=== PATIENT | female | born 1950 | race Caucasian/White ===

== ENCOUNTER 2018-05-17 08:36 | Outpatient (CLI) ==
--- NOTE | 2018-05-17 11:24 | MRI ---
EXAM: Brain MRI with and without contrast. HISTORY: Chronic headaches. COMPARISON: Brain MRI 09/02/2012. TECHNIQUE: Multiplanar, multisequence MR images were acquired of the brain before and after administ ration of intravenous contrast. FINDINGS: The midline structures are central and the craniocervical junction is unremarkable. The v entricles, sulci and cisterns are normal in size and configuration for the patient's age. There are no abnormal extra-axial fluid collections. The brain parenchyma has no diffusion restriction to suggest acute hypoperfusion or infarction. Ther e are no abnormal foci of dark gradient echo signal. Small T2 hyperintensities are present in the mccarthy pratentorial white matter consistent with mild leukomalacia which has slightly progressed compared to previously. There are no abnormal foci of dark gradient echo signal. After administration of gadol inium, no enhancing lesions are identified. The corpus callosum is normal. The pituitary gland is l ow normal in size with homogeneous contrast enhancement. There are no intraorbital masses. There has been previous lens surgery bilaterally. Paranasal sinus es, middle ears and mastoids are clear. There is no abnormal contrast enhancement in the internal au ditory canals or labyrinthine structures. Expected flow voids are present in the major intracranial arteries. The basilar artery and both vert ebral arteries are developmentally small due to origins of both posterior cerebral arteries are prominent bilateral posterior communicating arteries which is a common normal variant. Dural venous sinuses are patent. IMPRESSION: 1. No intracranial mass, hemorrhage or acute cerebral infarct. 2. Mild supratentorial chronic microvascular ischemic disease which has slightly progressed compared to previously.
== END 2018-05-17 08:37 | disposition home or self-care (01) ==
LOC: RAD 08:36
PROVIDERS: ATTEND Nurse Practitioner
DX: R51 Headache (principal)
CPT/HCPCS: 36415; 82565

== ENCOUNTER 2018-05-19 09:15 | Outpatient (CLI) ==
--- NOTE | 2018-05-20 10:15 | MRI ---
EXAM: [place] MR angiogram without contrast. HISTORY: Headache. COMPARISON: Brain MRI 05/17/2018. TECHNIQUE: 3-D [id number] MR angiography was acquired through the [place] without contra st. FINDINGS: The right internal carotid artery has no flow-limiting stenoses from the distal cervical s egment to the intracranial bifurcation. There is a dominant right posterior communicating artery wit h a tiny hypoplastic right posterior cerebral artery P1 segment. The right P2 segment is of normal c aliber to its bifurcation. The right middle cerebral artery is normal. The right anterior cerebral artery A1 segment is moderately hypoplastic and there is diminution in signal intensity of the proxim al 4 mm of the right A2 segment without abnormal narrowing of the flow void which is considered artif actual due to turbulent flow. Distally the artery is normal in caliber and signal intensity. The an terior communicating artery is present. The left internal carotid artery has no flow-limiting stenoses from the distal cervical segment to th e intracranial bifurcation. There is a probable dominant left posterior communicating with a tiny pa rtially visualized left P1 segment. The P2 segment has a mild stenosis in the proximal left posterio r communicating artery 2 mm from the origin and distally the artery is of normal caliber to its bifur cation. The left anterior cerebral artery is normal. There is mild narrowing at the origin and prox imal 3 mm of the left M1 segment that may be artifactual due to turbulent flow. Distally, the artery is of normal caliber to its bifurcation. 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 There is a tiny vessel noted i n the region of the left basilar tip that may represent a left P1 segment which is partially visualiz ed. Both superior cerebellar arteries are unremarkable. The left vertebral artery is small and ends as the left posterior inferior cerebellar artery. There are no aneurysms or vascular malformations in the [place]. IMPRESSION: 1. 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 This is a not uncommon normal variant. 2. The left vertebral artery ends as the left posterior inferior cerebellar artery which is a normal variant. 3. No flow-limiting stenoses, aneurysms or vascular malformations are present in the major arteries of the [place]
== END 2018-05-19 09:16 | disposition home or self-care (01) ==
LOC: RAD 09:15
PROVIDERS: ATTEND Nurse Practitioner
DX: R51 Headache (principal)